=== PATIENT | male | born 1960 | race Caucasian/White ===

== ENCOUNTER → 2017-05-02 | Outpatient (CLI) | payer BC ==
[2015-07-08 11:45] VITALS: BP 150/91
[~2017-05-02] VITALS: Ht 185.4 cm; Wt 104.5 kg
[~2017-05-02] MED LIST: CIALIS20 MG PO
== END ==
LOC: AMSURD 09:00
DX: Z01.818 Encounter for other preprocedural examination (principal)

== ENCOUNTER → 2017-05-06 | Outpatient (CLI) | payer BC ==
[2015-07-08 11:45] VITALS: BP 150/91
== END ==
LOC: RAD 08:40
DX: R91.8 Other nonspecific abnormal finding of lung field (principal)
CPT/HCPCS: Q9967

== ENCOUNTER 2021-03-16 10:00 | Outpatient (RCR) | payer BC | END 2021-06-14 | disposition home or self-care (01) | LOC: PT | DX: S46.012A Strain of muscle(s) and tendon(s) of the rotator cuff of left shoulder, initial encounter (principal) ==

== ENCOUNTER 2021-08-31 09:43 | Outpatient (RCR) | payer BC | END 2021-09-14 | disposition home or self-care (01) | LOC: PT | DX: M25.512 Pain in left shoulder (principal) ==

== ENCOUNTER 2021-09-15 09:39 | Outpatient (RCR) | payer BC | END 2021-10-12 | disposition home or self-care (01) | LOC: PT | DX: M25.512 Pain in left shoulder (principal); Z98.890 Other specified postprocedural states ==

== ENCOUNTER 2021-10-13 10:00 | Outpatient (RCR) | payer BC | END 2021-11-12 | disposition home or self-care (01) | LOC: PT | DX: M25.512 Pain in left shoulder (principal); Z98.890 Other specified postprocedural states ==

== ENCOUNTER 2021-11-17 09:41 | Outpatient (RCR) | payer BC | END 2021-12-12 | disposition still patient (30) | LOC: PT | DX: M25.512 Pain in left shoulder (principal) ==

== ENCOUNTER 2021-12-15 08:43 | Outpatient (RCR) | payer BC | END 2022-01-12 | disposition home or self-care (01) | LOC: PT | DX: M25.512 Pain in left shoulder (principal); Z98.890 Other specified postprocedural states ==

== ENCOUNTER 2022-01-26 10:11 | Outpatient (RCR) | payer BC | END 2022-02-11 | disposition still patient (30) | LOC: PT | DX: M25.512 Pain in left shoulder (principal); Z98.890 Other specified postprocedural states ==

== ENCOUNTER 2022-02-18 09:48 | Outpatient (RCR) | payer BC | END 2022-03-14 | disposition home or self-care (01) | LOC: PT | DX: M25.512 Pain in left shoulder (principal); Z96.612 Presence of left artificial shoulder joint ==

== ENCOUNTER 2022-03-18 08:00 | Outpatient (RCR) | payer BC | END 2022-04-14 | disposition home or self-care (01) | LOC: PT | DX: M25.512 Pain in left shoulder (principal) ==